=== PATIENT | male | born 1950 | race African-American/Black ===

== ENCOUNTER 2024-11-09 07:58 | Observation (INO) | payer MEDICARE, OTHER ==
--- NOTE | 2024-11-09 08:22 | ED ---
Abdominal Pain HPI - General Chief Complaint: Abdominal Pain Stated Complaint: abd pain Time Seen by Provider: 11/09/24 08:10 Source: patient, RN notes reviewed Mode of arrival: wheelchair Limitations: no limitations - History of Present Illness Initial Comments: This is a 73-year-old male who presents to the emergency department for abdominal pain, nausea, and vomiting. States that it started 2 weeks ago and has been occurring intermittently. He has not noticed a pattern to his pain. When this first started states that he was urinating and having bowel movements excessively, however that has since improved. He did go to [facility] 2 weeks ago and states that he had multiple tests done, but is unsure what those consisted of or what the results were. Denies any fevers or chills. MD Complaint: abdominal pain - Related Data Home Medications Medication Instructions Recorded Confirmed Atorvastatin [Lipitor] 40 mg PO DAILY 11/09/24 11/09/24 Budesonide/Formoterol Fumarate 2 puff INHALATION RT-BID 11/09/24 11/09/24 [Budesonide-Formoterol 80-4.5] Divalproex [Depakote] 500 mg PO TID 11/09/24 11/09/24 Furosemide [Lasix] 40 mg PO DAILY 11/09/24 11/09/24 Ondansetron Odt [Zofran Odt] 4 mg PO Q8HR PRN 11/09/24 11/09/24 Pantoprazole [Protonix] 40 mg PO DAILY 11/09/24 11/09/24 Sacubitril/Valsartan [Entresto 24 1 tab PO BID 11/09/24 11/09/24 mg-26 mg Tablet] carvediloL [Coreg] 12.5 mg PO BID 11/09/24 11/09/24 Allergies Allergy/AdvReac Type Severity Reaction Status Date / Time No Known Allergies Allergy Verified 11/09/24 14:39 Review of Systems ROS Statement: Those systems with pertinent positive or pertinent negative responses have been documented in the HPI. ROS Other: All systems not noted in ROS Statement are negative. Past Medical History Past Medical History: Diabetes Mellitus, Hypertension, Seizure Disorder History of Any Multi-Drug Resistant Organisms: None Reported Past Surgical History: Tonsillectomy Past Psychological History: No Psychological Hx Reported Smoking Status: Never smoker Past Alcohol Use History: None Reported Past Drug Use History: None Reported General Exam Limitations: no limitations General appearance: alert, in no apparent distress Head exam: Present: atraumatic, normocephalic, normal inspection Respiratory exam: Present: normal lung sounds bilaterally. Absent: respiratory distress, wheezes, rales, rhonchi, stridor Cardiovascular Exam: Present: regular rate, normal rhythm GI/Abdominal exam: Present: soft, tenderness (diffuse). Absent: distended Neurological exam: Present: alert, oriented X3, CN II-XII intact Psychiatric exam: Present: normal affect, normal mood Skin exam: Present: warm, dry, intact, normal color. Absent: rash Course Vital Signs 11/09/24 11/09/24 11/09/24 08:03 11:07 11:13 Temperature 97.8 F Pulse Rate 105 H 102 H 100 Respiratory 20 Rate Blood Pressure 142/101 O2 Sat by Pulse 95 Oximetry 11/09/24 12:33 Temperature Pulse Rate 98 Respiratory 18 Rate Blood Pressure 165/112 O2 Sat by Pulse 96 Oximetry Medical Decision Making - Medical Decision Making This is a 73-year-old male who presents to the emergency department for abdominal pain. Was pt. sent in by a medical professional or institution? @ -No Did you speak to anyone other than the patient for history? @ -No Did you review nursing and triage notes? @ -Yes, and I agree, it is accurate with regards to the patient's symptoms. Were old charts reviewed? @ -No Differential Diagnosis? @ -Differential Abdominal Pain Men: Appendicitis, cholecystitis, diverticulosis, ischemic bowel, pancreatitis, hep atitis, UTI, gastroenteritis, AAA, incarcerated hernia, bowel obstruction, constipation, inflammatory bowel, hepatitis, peptic ulcer disease, splenic infarction, perforated viscus, testicular torsion, this is not meant to be an all-inclusive list EKG interpreted by me (3pts min.)? @ -EKG interpreted by me demonstrating the following: Sinus rhythm. Ventricular rate 89 bpm, SD interval 207 ms, QRS duration 93 ms, QTc 424 ms. X-rays interpreted by me (1pt min.)? @ -Chest x-ray obtained. My interpretation identifies patchy bilateral infiltrates. CT interpreted by me (1pt min.)? @ -CT scan of the abdomen and pelvis obtained. My interpretation identifies no dilation of the bowel loops. U/S interpreted by me (1pt. min.)? @ -Not obtained What testing was considered but not performed? (CT, X-rays, U/S, labs)? Why? @ -None What meds were considered but not given? Why? @ -None Did you discuss the management of the patient with other professionals? @ -Yes, Dr. Almeida, who accepts the patient for admission. Did you reconcile home meds? @ -Yes Was smoking cessation discussed for >3mins.? @ -No Was critical care preformed (if so, how long)? @ -No Were there social determinants of health that impacted care today? How? (Ho melessness, low income, unemployed, alcoholism, drug addiction, transportation, low edu. Level, literacy, decrease access to med. care, usp, rehab)? @ -No Was there de-escalation of care discussed even if they declined? (Discuss DNR or withdrawal of care, Hospice)? @ -No What co-morbidities impacted this encounter? (DM, HTN, Smoking, COPD, CAD, Cancer, CVA, Hep., AIDS, mental health diagnosis, sleep apnea, morbid obesity)? @ -DM, HTN Was patient admitted / discharged? @ -Admitted. Lab work demonstrates signs of dehydration with a BUN of 31. Renal function is also slightly impaired with a creatinine of 1.58 and eGFR of 50. However, we have no prior values for comparison. Lactic acid mildly elevate d at 2.4. Urinalysis not suggestive of infection. CT scan of the abdomen and pelvis obtained demonstrating generalized anasarca changes with small bilateral pleural effusions suggestive of fluid overload/CHF. He also has patchy groundglass opacities in the lower lungs that may reflect early developing pulmonary edema versus concurrent pneumonia. When these findings were identified, his IV fluids were discontinued and he had only received approximately 200 mL. Patient advised that he had been diagnosed with CHF in the past, but was under the impression that it somehow resolved and he is not currently taking any medication for it. Also states that he is not following with cardiology. Additionally, states that he was treated for pneumonia a few weeks ago. He does occasionally struggle with shortness of breath, though believes it to be related to his asthma. Denies any chest pain. Patient is somewhat of a poor historian. I then proceeded with additional laboratory studies including a BNP which was 28,700. 40 mg of IV Lasix administered. Chest x-ray obtained as well demonstrating patchy bilateral lung infiltrates suggestive of pneumonia or atypical pulmonary edema. Given the additional possibility of pneumonia, he was also started on the pneumonia protocol with ceftriaxone and azithromycin. Patient admitted to medicine for CHF exacerbation and pneumonia. Consult placed for cardiology. Echocardiogram ordered. Social work consulted as well given that the patient is homeless and unable to follow through with medical care. Case discussed with ED attending Dr. Desai. Of note, patient advised that he was treated at [facility] 2 weeks ago. We did call over there for records and they had no record of the patient being there. Undiagnosed new problem with uncertain prognosis? @ -None Drug Therapy requiring intensive monitoring for toxicity (Heparin, Nitro, Insulin, Cardizem)? @ -None Were any procedures done? @ -None Diagnosis/symptom? @ -CHF exacerbation, pneumonia Acute, or Chronic, or Acute on Chronic? @ -Acute Uncomplicated (without systemic symptoms) or Complicated (systemic symptoms)? @ -Uncomplicated Side effects of treatment? @ -None Exacerbation, Progression, or Severe Exacerbation] @ -Exacerbation, not applicable Poses a threat to life or bodily function? @ -Yes, can lead to - Lab Data Result diagrams: 11/09/24 09:00 11/09/24 09:00 Lab Results 11/09/24 11/09/24 11/09/24 Range/Units 09:00 09:00 09:00 WBC 4.84 (4.50-10.00) 10*3/uL RBC 4.12 L (4.40-5.60) 10*6/uL Hgb 12.8 L (13.0-17.0) g/dL Hct 38.2 L (39.6-50.0) % MCV 92.7 (80.0-97.0) fL MCH 31.1 (27.0-32.0) pg MCHC 33.5 (32.0-37.0) g/dL Plt Count 170 (140-440) 10*3/uL MPV 11.3 (9.5-12.2) fL Immature Gran % (Auto) 0.2 % Neutrophils % 53.4 % Lymphocytes % 35.1 % Monocytes % 10.3 % Eosinophils % 0.6 % Basophils % 0.4 % Immature Gran # 0.01 (0.00-0.04) 10*3/uL Neutrophils # 2.58 (1.80-7.70) 10*3/uL Lymphocytes # 1.70 (0.90-5.00) 10*3/uL Monocytes # 0.50 (0.20-1.00) 10*3/uL Eosinophils # 0.03 L (0.04-0.35) 10*3/uL Basophils # 0.02 (0.00-0.10) 10*3/uL Sodium 142 (137-145) mmol/L Potassium 4.2 (3.5-5.1) mmol/L Chloride 102 (98-107) mmol/L Carbon Dioxide 29 (22-30) mmol/L Anion Gap 11 mmol/L BUN 31 H (9-20) mg/dL Creatinine 1.58 H (0.66-1.25) mg/dL Est GFR (CKD-EPI)AfAm 50 (>60 ml/min/1.73 sqM) Est GFR (CKD-EPI)NonAf 44 (>60 ml/min/1.73 sqM) Glucose 99 (74-99) mg/dL Lactic Ac Sepsis Rflx Plasma Lactic Acid Deyvi 2.4 H* (0.7-2.0) mmol/L Calcium 8.9 (8.4-10.2) mg/dL Total Bilirubin 1.2 (0.2-1.3) mg/dL AST 29 (17-59) U/L ALT 17 (4-49) U/L Alkaline Phosphatase 83 (38-126) U/L NT-Pro-B Natriuret Pep pg/mL Total Protein 6.6 (6.3-8.2) g/dL Albumin 3.5 (3.5-5.0) g/dL Amylase 55 (30-110) U/L Lipase 114 (23-300) U/L 11/09/24 11/09/24 Range/Units 09:53 10:24 WBC (4.50-10.00) 10*3/uL RBC (4.40-5.60) 10*6/uL Hgb (13.0-17.0) g/dL Hct (39.6-50.0) % MCV (80.0-97.0) fL MCH (27.0-32.0) pg MCHC (32.0-37.0) g/dL Plt Count (140-440) 10*3/uL MPV (9.5-12.2) fL Immature Gran % (Auto) % Neutrophils % % Lymphocytes % % Monocytes % % Eosinophils % % Basophils % % Immature Gran # (0.00-0.04) 10*3/uL Neutrophils # (1.80-7.70) 10*3/uL Lymphocytes # (0.90-5.00) 10*3/uL Monocytes # (0.20-1.00) 10*3/uL Eosinophils # (0.04-0.35) 10*3/uL Basophils # (0.00-0.10) 10*3/uL Sodium (137-145) mmol/L Potassium (3.5-5.1) mmol/L Chloride (98-107) mmol/L Carbon Dioxide (22-30) mmol/L Anion Gap mmol/L BUN (9-20) mg/dL Creatinine (0.66-1.25) mg/dL Est GFR (CKD-EPI)AfAm (>60 ml/min/1.73 sqM) Est GFR (CKD-EPI)NonAf (>60 ml/min/1.73 sqM) Glucose (74-99) mg/dL Lactic Ac Sepsis Rflx Y Plasma Lactic Acid Deyvi (0.7-2.0) mmol/L Calcium (8.4-10.2) mg/dL Total Bilirubin (0.2-1.3) mg/dL AST (17-59) U/L ALT (4-49) U/L Alkaline Phosphatase (38-126) U/L NT-Pro-B Natriuret Pep 02845 pg/mL Total Protein (6.3-8.2) g/dL Albumin (3.5-5.0) g/dL Amylase (30-110) U/L Lipase (23-300) U/L - Radiology Data Radiology results: report reviewed, image reviewed Disposition Clinical Impression: CHF exacerbation, Pneumonia Disposition: ADMITTED IP TO THIS HOSP
[2024-11-09] MEDS: SODIUM CHLORIDE 0.9% 1,000 ML IV ONE (09:12)
[2024-11-09] MEDS: ONDANSETRON 4 MG/2 ML VIAL IVP STA (09:12)
[2024-11-09 09:15] LABS: Basophils # (A) 0.02 10*3/uL (0.00-0.10); Basophils % (A) 0.4 %; Eosinophils # (A) 0.03 10*3/uL (0.04-0.35); Eosinophils % (A) 0.6 %; HCT 38.2 % (39.6-50.0); HGB 12.8 g/dL (13.0-17.0); Lymphocytes % (A) 35.1 %; MCH 31.1 pg (27.0-32.0); MCHC 33.5 g/dL (32.0-37.0); MCV 92.7 fL (80.0-97.0); Mean Platelet Volume 11.3 fL (9.5-12.2); Monocytes % (A) 10.3 %; Neutrophils # (A) 2.58 10*3/uL (1.80-7.70); Neutrophils % (A) 53.4 %; Platelet Count 170 10*3/uL (140-440); RBC 4.12 10*6/uL (4.40-5.60); RDW 14.7 % (11.5-14.5); WBC 4.84 10*3/uL (4.50-10.00)
[2024-11-09 09:25] LABS: ALT 17 U/L (4-49); AST 29 U/L (17-59); African American GFR (CKD) 50 (>60 ml/min/1.73 sqM); Albumin 3.5 g/dL (3.5-5.0); Alkaline Phosphatase 83 U/L (38-126); Amylase 55 U/L (30-110); Anion Gap 11 mmol/L; Blood Urea Nitrogen 31 mg/dL (9-20); Calcium 8.9 mg/dL (8.4-10.2); Carbon Dioxide 29 mmol/L (22-30); Chloride 102 mmol/L (98-107); Glucose 99 mg/dL (74-99); Lipase 114 U/L (23-300); Non-African American GFR(CKD) 44 (>60 ml/min/1.73 sqM); Potassium 4.2 mmol/L (3.5-5.1); Sodium 142 mmol/L (137-145); Total Bilirubin 1.2 mg/dL (0.2-1.3); Total Protein 6.6 g/dL (6.3-8.2)
--- NOTE | 2024-11-09 10:19 | CT ---
EXAMINATION TYPE: CT abdomen pelvis w con DATE OF EXAM: 11/09/2024 10:01 AM COMPARISON: None. CLINICAL INDICATION: Male, 73 years old with history of abdominal pain; Pt c/o bilat lower abd pain w ith n/v/d. TECHNIQUE: CT of the abdomen and pelvis after IV contrast. Delayed images through the kidneys and sa gittal and coronal reformats were created on a separate workstation. Contrast used:80 ml mL of Isovue 300 with IV Contrast, Oral contrast used: without Oral Contrast CT DLP: 886.9 mGycm, Automated exposure control for dose reduction was used. FINDINGS: LOWER CHEST: The heart is mildly enlarged. No pericardial effusion. There are small bilateral pleural effusions with patchy groundglass and focal areas of consolidation some of which have a nodular conf iguration measuring up to 3.3 cm. ABDOMEN LIVER: Scattered small hepatic cysts measuring up to 11 mm. Portal venous system is patent. GALLBLADDER AND BILE DUCTS: Unremarkable. PANCREAS: Unremarkable. SPLEEN: Unremarkable. ADRENAL GLANDS: Unremarkable. KIDNEYS AND URETERS: 1.5 cm cyst anterior right kidney. Symmetric uptake and excretion of contrast fr om both kidneys. No nephrolithiasis or hydronephrosis. PELVIS BLADDER: Mild circumferential bladder wall thickening. REPRODUCTIVE: Prostate gland normal size 3.5 cm wide. Small pelvic phleboliths. Some presacral edema is present in conjunction with the generalized anasarca change. ABDOMEN & PELVIS STOMACH AND BOWEL: There appears to be mild diffuse gastric fold thickening. Possible mild perigastri c fat stranding versus stranding related to generalized anasarca. No evidence of bowel obstruction. PERITONEUM/RETROPERITONEUM: No evidence of pneumoperitoneum or free fluid. VASCULATURE: No evidence of aortic aneurysm. MUSCULOSKELETAL: Degenerative changes left SI joint. Hypertrophic facet arthropathy with degenerative grade 1 anterolisthesis L4-L5. LYMPH NODES: No gross evidence for lymphadenopathy. SOFT TISSUE/ABDOMINAL WALL: Mild to moderate generalized anasarca change. IMPRESSION: 1. Generalized anasarca changes with small bilateral pleural effusions and clinically. Findings sugg est fluid overload/CHF. 2. Patchy groundglass in the lower lungs may reflect early developing pulmonary edema. However, there are more focal nodular areas of consolidation measuring up to 3.3 cm. Correlate to exclude a concurr ent pneumonia. Follow-up CT in 2-3 months to ensure resolution. 3. Gastric fold thickening may be due to nondistention or a nonspecific gastritis. 4. Additional mild circumferential bladder wall thickening which may be chronic for the patient. Titus elate to exclude cystitis. [facility], , 11/09/2024 10:16 AM
--- NOTE | 2024-11-09 10:46 | XR ---
EXAMINATION TYPE: XR chest 2V DATE OF EXAM: 11/09/2024 10:41 AM COMPARISON: None. CLINICAL INDICATION: Male, 73 years old with history of PHILIP, TECHNIQUE: XR chest 2V view(s) obtained. FINDINGS: The heart size is enlarged. The pulmonary vasculature is prominent. Scattered infiltrates are present. This may be more focal in the right perihilar region. Follow-up to clearing is recommended. IMPRESSION: 1. Patchy bilateral lung infiltrates greatest in the right perihilar region. Correlate for pneumonia and atypical pneumonia. Atypical pulmonary edema could be considered. Underlying congestive heart trupti lure may be present. Follow-up is recommended. [facility], , 11/09/2024 10:44 AM
[2024-11-09] MEDS: methylPREDNISolone SOD SUCCI 125 MG/2 ML VIAL IV STA (10:56)
[2024-11-09] MEDS: IPRATROPIUM-ALBUTEROL 3 ML NEB INHALATION STA (11:07)
[2024-11-09] MEDS ORDERED: PNEUMONIA PROTOCOL UTILIZED 1 EACH MISC PO PRN (11:44)
[2024-11-09] MEDS: FUROSEMIDE 10 MG/ML 4 ML VIAL IV STA (12:29)
[2024-11-09] MEDS ORDERED: ACETAMINOPHEN TAB 325 MG TAB PO PRN (12:29)
[2024-11-09] MEDS ORDERED: ONDANSETRON 4 MG/2 ML VIAL IVP PRN (12:29)
[2024-11-09] MEDS ORDERED: HYDROcodone/APAP 5-325MG 1 EACH TAB PO PRN (12:29)
[2024-11-09] MEDS ORDERED: NALOXONE 0.4 MG/ML 1 ML VIAL IV PRN (12:29)
[2024-11-09] MEDS: AZITHROMYCIN 500 MG in SODIUM CHLORIDE 0.9% 250 ML IVPB STA (14:21)
[2024-11-09 14:25] LABS: Appearance,Urine Clear (Clear); Bilirubin,Urine Negative (Negative); Blood,Urine Small (Negative); Color,Urine Yellow; Glucose,Urine (UA) Negative (Negative); Hyaline Casts,Urine 3 /lpf (0-2); Ketones,Urine Trace (Negative); Leukocyte Esterase,Urine Negative (Negative); Mucus,Urine Rare /hpf; Nitrite,Urine Negative (Negative); Protein,Urine 1+ (Negative); RBC,Urine 4 /hpf (0-5); Urobilinogen,Urine <2.0 mg/dL (<2.0); WBC,Urine 2 /hpf (0-5)
[2024-11-09] MEDS ORDERED: ONDANSETRON ODT 4 MG TAB PO PRN (16:39)
[2024-11-09] MEDS: carvediloL 12.5 MG TAB PO SCH (16:57)
[2024-11-09 19:32] VITALS: BP 130/103; PULSE 91; RESP 16; TEMP 98.7
[2024-11-09] MEDS ORDERED: SYMBICORT 80-4.5 MCG INHALER INHALATION SCH (20:00)
[2024-11-09] MEDS ORDERED: SACUBITRIL/VALSARTAN 24 MG-26 MG TABLET PO SCH (21:00)
[2024-11-09] MEDS ORDERED: DIVALPROEX 500 MG TABLET.DR PO SCH (22:00)
[2024-11-10] MEDS ORDERED: PANTOPRAZOLE 40 MG/10 ML VIAL IV SCH (09:00)
[2024-11-10] MEDS ORDERED: ATORVASTATIN 40 MG TAB PO SCH (09:00)
[2024-11-10] MEDS ORDERED: PANTOPRAZOLE 40 MG TABLET PO SCH (09:00)
[2024-11-10] MEDS ORDERED: AZITHROMYCIN 500 MG TAB PO SCH (09:00)
[2024-11-10] MEDS ORDERED: FUROSEMIDE 40 MG TAB PO SCH (09:00)
== END 2024-11-09 20:02 | disposition left against medical advice (07) ==
LOC: EC 07:58 → 6NMEDSUR 11:37
PROVIDERS: ADMIT Hospitalist; ATTEND Hospitalist
DX: J18.9 Pneumonia, unspecified organism (principal); Z53.29 Procedure and treatment not carried out because of patient's decision for other reasons; I11.0 Hypertensive heart disease with heart failure; I50.9 Heart failure, unspecified; E11.9 Type 2 diabetes mellitus without complications; Z79.899 Other long term (current) drug therapy
CPT/HCPCS: 96365; 96366; 96367; 96375; 99285; 36415; 94640; 93005; 83880; 80053; 87449; 82150; 83605; 83690; 84484; 85025; 81001; 87040; 84145; 71046; 74177; G0378; J2405; J0456; J0696; Q9967; J2919; J1938